=== PATIENT | male | born 1985 | race African-American/Black ===

== ENCOUNTER 2022-04-09 17:16 | Emergency (ER) | payer MEDICAID, OTHER ==
[~2022-04-09] VITALS: Ht 170.2 cm; Wt 90.0 kg
[2022-04-09] MEDS ORDERED: TETANUS-DIPTH-ACEL PERTUSSIS 0.5ML SYR Tdap IM ONE (20:15)
[2022-04-09 20:28] VITALS: BP 163/91
== END 2022-04-09 20:51 | disposition home or self-care (01) ==
LOC: ER 17:16
DX: S01.511A Laceration without foreign body of lip, initial encounter (principal); W26.8XXA Contact with other sharp object(s), not elsewhere classified, initial encounter; Y93.89 Activity, other specified; Y92.89 Other specified places as the place of occurrence of the external cause; Y99.8 Other external cause status
CPT/HCPCS: 12011; 90471; 90715